=== PATIENT | male | born 1950 | race Caucasian/White ===

== ENCOUNTER 2017-12-21 11:07 | Emergency (ER) | payer OTHER, MEDICARE, SELFPAY ==
[2017-12-21 11:08] VITALS: BP 123/65; PULSE 54; RESP 16; TEMP 36.6; O2SAT 95; BMI 29.7
[2017-12-21 11:19] VITALS: BP 111/74; PULSE 54; RESP 14; O2SAT 94
[2017-12-21] MEDS: 0.9% Normal Saline 1,000 ML 150 ML IV (11:57)
[2017-12-21] MEDS: Ondansetron 4 MG/2 ML Vial IV (11:58)
[2017-12-21] MEDS: Morphine 4 MG/ML Syringe IV ×2 (11:58→14:18)
[2017-12-21 12:06] LABS: Absolute Lymphocyte Count 1.08 X10^3/ul (0.83-4.51); Absolute Neutrophil Count 8.4 X10^3/uL (2.0-7.7); Basophil# 0.02 X10^3/uL; Basophil% 0.2 % (0-1); Eosinophil# 0.06 X10^3/uL; Eosinophils% 0.6 % (0-5); Hematocrit 44.5 % (40-54); Hemoglobin 14.5 g/dl (13.0-16.5); Lymphocyte # 1.08 X10^3/ul (4.0); Lymphocyte % 10.5 % (19-41); Mean Corp Hgb Conc 32.6 g/gl (32-36); Mean Corpuscular Hgb 28.7 pg (27.0-32.0); Mean Corpuscular Volume 88.1 fL (80-94); Monocyte# 0.67 X10^3/uL; Monocyte% 6.5 % (0-10); Neutrophil # 8.41 X10^3/uL (2.7-7.7); Platelet Count 157 K/mm3 (150-450); RBC Distribution Width CV 12.6 % (11.6-14.6); RBC Distribution Width SD 40.2 fl (35.1-43.9); Red Blood Count 5.05 M/mm3 (4.6-6.2); White Blood Count 10.3 K/mm3 (4.4-11.0)
[2017-12-21 12:07] LABS: POSITIVE COUNT NO; POSITIVE DIFFERENTIAL NO; POSITIVE MORPHOLOGY NO
[2017-12-21 12:21] LABS: ALB/GLOB Ratio 1.1 RATIO (0.9-2.4); AST(SGOT) 40 U/L (15-37); Alanine Aminotransfer ALT/SGPT 45 U/L (16-61); Albumin, Serum 4.1 g/dL (3.2-5.0); Alkaline Phosphatase 63 U/L (45-117); Anion Gap 6 (5-15); BUN 25 mg/dL (7-18); BUN/Creat Ratio 17.6 RATIO (10-20); Chloride 106 mmol/L (98-107); Creatinine, Serum 1.42 mg/dL (0.70-1.30); EST Glomerular Filtration Rate 53 mL/min (>60); Est Glom Filt Rate - Afr Amer 64 mL/min (>60); Estimated Creatinine Clearance 55.41 ml/min; Globulin 3.6 g/dL (2.2-4.2); Glucose 130 mg/dL (74-106); Lipase 137 U/L (73-393); Potassium 4.4 mmol/L (3.5-5.1); Protein, Total 7.7 g/dL (6.4-8.2); Sodium Level 140 mmol/L (136-145)
[2017-12-21 13:07] VITALS: BP 120/55; PULSE 51; RESP 15; O2SAT 94
[2017-12-21 14:22] VITALS: BP 129/63; PULSE 69; RESP 16; O2SAT 96
--- NOTE | 2017-12-21 14:44 | PCM.OPRPT ---
Problem List (1) Pneumothorax, left Status: Acute Report of Operation Date of Procedure: 12/21/17 Pre-Operative Diagnosis: Left rib fractures as well as left pneumothorax Post-Operative Diagnosis: Same Surgery/Procedure Performed:: Left chest tube placement Description of Procedure: The patient's CT scan was reviewed and he had multiple rib fractures on the left as well as a pneumothorax. The patient was consented as to the risks of bleeding, infection, injury to the heart or lung. The patient's left side was prepped and draped in usual sterile fashion and an incision site was located in the inframammary crease laterally and midaxillary line. The proposed incision site was injected with lidocaine and then a skin incision was made. The deeper subcutaneous tissue and periosteal tissue was then anesthetized with lidocaine. A hemostat was used to create a thoracostomy opening just above 1 of the ribs and there was a case of air. A finger sweep was performed. Next a 28 Pashto chest tube was placed into the left chest and secured to the skin using 2-0 Mersilene suture and a 3-0 silk suture for the skin. The chest he was placed to suction and there was a good case of air and after that there was no air leak. The chest tube was placed to -20 of suction. The area around the incision was then gauze was placed around this as well as drain sponges and tape. Patient tolerated the procedure well. Chest x-ray will be obtained.
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
[2017-12-21 15:20] VITALS: BP 114/63; PULSE 57; RESP 22; O2SAT 99
[2017-12-21 15:37] VITALS: BP 114/63; PULSE 57; RESP 18; O2SAT 99
== END 2017-12-21 16:38 | disposition short-term general hospital (02) ==
PROVIDERS: Emergency Provider Emergency Medicine; Family Provider Family Medicine; PCP Family Medicine
DX: J93.9 Pneumothorax, unspecified (principal); S22.42XA Multiple fractures of ribs, left side, initial encounter for closed fracture; S09.90XA Unspecified injury of head, initial encounter; S01.01XA Laceration without foreign body of scalp, initial encounter; V19.9XXA Pedal cyclist (driver) (passenger) injured in unspecified traffic accident, initial encounter; Y93.55 Activity, bike riding; Y92.828 Other wilderness area as the place of occurrence of the external cause; Y99.8 Other external cause status; I44.0 Atrioventricular block, first degree
CPT/HCPCS: 12001; 32551; 70450; 71045; 71260; 72125; 74177; 80053; 83690; 84484; 85025; 93005; 96361; 96374; 96375; 96376; 99285; J7030; Q9967; A4216; J2405

== ENCOUNTER 2021-03-17 14:36 | Outpatient (CLI) | payer MEDICARE, SELFPAY ==
[2021-03-17 14:47] VITALS: BP 129/62; PULSE 63; RESP 16; TEMP 37.3; O2SAT 92; BMI 28.5
[2021-03-17] MEDS: 0.9% Saline Lock 10 ML Syringe IV (14:47)
[2021-03-17 15:40] VITALS: BP 125/56; PULSE 63; RESP 16; TEMP 38.2; O2SAT 92
[2021-03-17] MEDS: Acetaminophen 325 MG Tablet 650 MG PO (16:14)
[2021-03-17 16:50] VITALS: BP 123/63; PULSE 62; RESP 16; TEMP 38.2; O2SAT 92
== END 2021-03-17 16:50 | disposition home or self-care (01) ==
LOC: MS3OUT 14:36 → MS3 14:37
PROVIDERS: PCP Family Medicine; Referring Provider Nurse Practitioner Adult Health; Visit Provider Nurse Practitioner Adult Health
DX: Z23 Encounter for immunization (principal); U07.1 COVID-19
CPT/HCPCS: J7050; M0245; Q0245; A4216

== ENCOUNTER 2021-03-20 13:55 | Inpatient (IN) | payer MEDICARE, SELFPAY ==
[2021-03-20] VITALS (8 sets, daily range): BP systolic 133–158; BP diastolic 54–75; PULSE 54–68; RESP 16–22; TEMP 36.3–36.5; O2SAT 82–96; BMI 29.8; BMI 29.3
--- NOTE | 2021-03-20 14:30 | EKG12_ITS ---
Test Reason : SOB Blood Pressure : / mmHG Vent. Rate : 059 BPM Atrial Rate : 059 BPM P-R Int : 234 ms QRS Dur : 090 ms QT Int : 468 ms P-R-T Axes : 022 052 046 degrees QTc Int : 463 ms Sinus bradycardia with 1st degree A-V block with occasional Premature ventricular complexes Septal infarct , age undetermined Abnormal ECG Confirmed by JAMES ROA, LORI ([id number]), video tape editor IGGY ESPOSITO ([id number]) on 03/22/2021 9:43:16 AM Referred By: EMMA Confirmed By:LORI RAMIREZ MD
--- NOTE | 2021-03-20 14:30 | CT_ITS ---
STUDY: CTA CHEST REASON FOR EXAM: Male, 70 years old. Hypoxia RADIATION DOSAGE (If Supplied By Facility): CTDIvol = ( 12.60 ) mGy, DLP = ( 562.89 ) mGycm TECHNIQUE: The examination was performed with the intravenous administration of IV 100mL Isovue-370. Post-processing of the angiographic images was performed, with multiplanar reformation and 3D reconstruction. Individualized dose optimization techniques were used for this CT. COMPARISON: Comparison is made with prior chest radiograph from earlier today. FINDINGS: Normal enhancement of the main pulmonary artery and right and left pulmonary arteries. Normal enhancement of the bilateral peripheral pulmonary arteries. There is no demonstrated pulmonary embolism. Normal thoracic aorta and visualized great vessels. There is no demonstrated aortic dissection. There are calcifications of the coronary arteries. Normal mediastinum. Normal hilar regions. Normal visualized trachea and bronchi. The lungs are well expanded. There now is evidence of bilateral infiltrates involving both upper and lower lobes worse in the left hemithorax and in the right lower lobe. Normal pleura. Normal chest wall structures. Normal osseous structures. Small anal hernia. CT/CTA Chest W/WO Contrast IMPRESSION: No evidence of pulmonary embolism. Bilateral pulmonary infiltrates worse in the left hemithorax. Electronically Signed: Joe Carlos MD at 15:47 EST , Service support ,
--- NOTE | 2021-03-20 14:40 | EDS_ITS ---
HPI History of Present Illness Chief Complaint: Shortness of Breath Narrative Narrative: 70-year-old male presenting with shortness of breath. He is on day 12 of COVID-19 symptoms. He still has a low-grade fever on and off. He denies body aches or chills. He states he is able to ambulate but becomes short of breath when he walks. He has mild weakness. He has not fallen. Patient denies having any chest pain. He states that he had the monoclonal antibodies last Saturday and his pulse ox was 94% during that time. After this his pulse ox has been down to 82 at home. Patient has not been on oxygen until today. PFSH PFSH Home Medications simvastatin 40 mg PO DAILY 12/21/17 [History Last Taken 03/19/21] aspirin [Aspirin Low-Strength] 81 mg PO DAILY@199903/20/21 [History Last Taken 03/19/21] Allergy/AdvReac Type Severity Reaction Status Date / Time No Known Allergies Allergy Verified 03/20/21 17:32 Social History Smoking Status: Never smoker ROS ROS ED Constitutional Constitutional ED: Reports fever(s); Denies chills Eyes Eyes: Denies blurry vision or diplopia ENT ENT ED: Denies ear pain or rhinorrhea Cardiovascular Cardiovascular: Denies chest pain or palpitations Respiratory/Chest Respiratory/Chest: Reports cough, dyspnea and dyspnea on exertion Gastrointestinal Gastrointestinal: Denies abdominal pain, nausea or vomiting Genitourinary Genitourinary ED: Denies dysuria or hematuria Musculoskeletal Musculoskeletal: Denies arthralgias or myalgias Integumentary Denies abscess or rash Neurologic Neurologic: Denies headache(s) or paresthesias Psychiatric Psychiatric: Denies anxiety or depression EXAM Physical Exam Const Vital Signs: 03/20/21 13:55 03/20/21 13:59 03/20/21 14:17 Temperature 97.4 F L Temperature Source Temporal Pulse Rate 60 Respiratory Rate 16 Respiratory Effort Short of Breath Labored Respiratory Depth Normal Respiratory Pattern Normal Blood Pressure 147/75 H Blood Pressure Mean 99 Pulse Ox 82 92 Oxygen Delivery Method Room Air Nasal Cannula Oxygen Flow Rate (L/min) 2 03/20/21 14:50 03/20/21 16:26 Temperature Temperature Source Pulse Rate 54 L Respiratory Rate 20 H Respiratory Effort Respiratory Depth Respiratory Pattern Blood Pressure Blood Pressure Mean Pulse Ox 96 91 Oxygen Delivery Method Nasal Cannula Nasal Cannula Oxygen Flow Rate (L/min) 3 3 Positive well nourished General Appearance ED: NAD; Negative for pallor HEENT Reports moist mucous membranes atraumatic Eyes PERRL and EOMs intact bilaterally Resp normal respiratory effort Auscultation: rales diffuse Cardio regular rhythm GI non-tender and non-distended Palpation: soft Neuro oriented x3, CN's II-XII intact bilaterally and no sensory deficits noted Sensorium / Orientation: alert and oriented to person Motor Exam: strength 5/5 throughout Psych mental status grossly normal Thought Process: normal thought process Skin General Skin Exam: Negative for jaundice or pallor MDM MDM MDM Narrative Medical decision making narrative: 70-year-old male presenting with hypoxia status post having Covid and is on day 12. Is also had a monoclonal antibodies. Patient says he has some minor fatigue otherwise. He denies any chest pain. He is dyspneic on exertion. EKG performed on arrival shows a sinus bradycardia with a ventricular rate of 59 bpm with a first-degree AV block and 1 PVC on my interpretation. Chest x-ray my interpretation shows bilateral pulmonary infiltrates which are worse on the left and radiologist does agree. CBC is unremarkable. Renal function electrolytes are normal. AST is 135, ALT 137. Troponin is 12. I did obtain a CTA of the chest which does not show any pulmonary emboli or dissection but does identify multiple bilateral pulmonary infiltrates. Patient was ambulated on 3 L of oxygen and dropped to 86%. On 4 L of oxygen he drops to 87%. He is symptomatic. At this point I feel the patient will need to be admitted for further care. Patient was given 6 mg of IV dexamethasone. I discussed this with the hospitalist and he will be admitted in stabilized condition. Impression: 1. COVID-19 pneumonitis 2. Hypoxic respiratory failure Lab Data Labs: Laboratory Results - last 24 hr 03/20/21 03/20/21 03/20/21 14:40 14:40 14:40 WBC 6.8 RBC 4.13 L Hgb 12.1 L Hct 35.2 L MCV 85.2 MCH 29.3 MCHC 34.4 RDW Std Deviation 38.9 RDW Coeff of Adrienne 12.5 Plt Count 152 MPV 9.8 Immature Gran % (Auto) 0.700 Neut % (Auto) 79.9 H Lymph % (Auto) 10.1 L [place] % (Auto) 9.1 Eos % (Auto) 0.1 Baso % (Auto) 0.1 Absolute Neuts (auto) 5.4 Absolute Lymphs (auto) 0.69 L Nucleated RBC % 0 Sodium 135 L Potassium 3.4 L Chloride 104 Carbon Dioxide 24.0 Anion Gap 7 BUN 11 Creatinine 0.82 Estim Creat Clear Calc 89.28 Est GFR (MDRD) Af Amer 119 Est GFR (MDRD) Non-Af 98 BUN/Creatinine Ratio 13.4 Glucose 109 H Calcium 8.6 Phosphorus 2.6 Magnesium 2.1 Total Bilirubin 0.70 AST 135 H ALT 137 H Alkaline Phosphatase 92 Troponin I High Sens 12 Total Protein 6.7 Albumin 2.6 L Globulin 4.1 Albumin/Globulin Ratio 0.6 L Radiography Diagnostic Testing: Clinical Impression(s) from Imaging Studies Chest CTA 03/20/21 14:30 IMPRESSION: No evidence of pulmonary embolism. Bilateral pulmonary infiltrates worse in the left hemithorax. Electronically Signed: Joe Carlos MD at 15:47 EST , Service support , Chest X-Ray 03/20/21 14:50 IMPRESSION: Bilateral pulmonary infiltrates worse in the left hemithorax. Electronically Signed: Joe Carlos MD at 15:30 EST , Service support , Discharge Plan Disposition Disposition: Acute Care Hospital [facility] Discharge Date/Time: 03/20/21 17:06
[2021-03-20 14:50] LABS: Absolute Lymphocyte Count 0.69 X10^3/uL (0.83-4.51); Absolute Neutrophil Count 5.4 X10^3/uL (2.0-7.7); Basophil# 0.01 X10^3/uL; Basophil% 0.1 % (0-1); Eosinophil# 0.01 X10^3/uL; Eosinophils% 0.1 % (0-5); Hematocrit 35.2 % (40-54); Hemoglobin 12.1 g/dL (13.0-16.5); Lymphocyte # 0.69 X10^3/ul (0.83-4.51); Lymphocyte % 10.1 % (19-41); Mean Corp Hgb Conc 34.4 g/dL (32-36); Mean Corpuscular Hgb 29.3 pg (27.0-32.0); Mean Corpuscular Volume 85.2 fL (80-94); Mean Platelet Vol. 9.8 fl (6.2-12.0); Monocyte# 0.62 X10^3/uL; Monocyte% 9.1 % (0-10); NRBC Flagged by Analyzer 0 % (0-5); Neutrophil # 5.42 X10^3/uL (2.7-7.7); Neutrophil % 79.9 % (47-70); Platelet Count 152 K/mm3 (150-450); RBC Distribution Width CV 12.5 % (11.6-14.6); RBC Distribution Width SD 38.9 fl (35.1-43.9); Red Blood Count 4.13 M/mm3 (4.6-6.2); White Blood Count 6.8 K/mm3 (4.4-11.0)
--- NOTE | 2021-03-20 14:50 | RAD_ITS ---
STUDY: X-RAY CHEST REASON FOR EXAM: Male, 70 yearsOld. Weakness and dyspnea. History of Covid. TECHNIQUE: Single AP portable view of the chest. COMPARISON: comparison is made with prior study 12/21/2017. FINDINGS: EKG electrodes are seen. There now is evidence of bilateral pulmonary infiltrates worse in the left hemithorax. There is no demonstrated pleural abnormality. Normal size heart. Normal mediastinum and nat. Normal visualized pulmonary arteries. There is atherosclerotic tortuosity of the aortic arch and descending thoracic aorta. Normal visualized thoracic spine. Normal visualized ribs, clavicles, and shoulders. There is no demonstrated abnormality of the visualized soft tissue structures of the upper abdomen. RAD/Chest 1 View (Portable) IMPRESSION: Bilateral pulmonary infiltrates worse in the left hemithorax. Electronically Signed: Joe Carlos MD at 15:30 EST , Service support ,
[2021-03-20 15:16] LABS: ALB/GLOB Ratio 0.6 RATIO (0.9-2.4); AST(SGOT) 135 U/L (15-37); Alanine Aminotransfer ALT/SGPT 137 U/L (16-61); Albumin, Serum 2.6 g/dL (3.2-5.0); Alkaline Phosphatase 92 U/L (45-117); Anion Gap 7 (5-15); BUN 11 mg/dL (7-18); BUN/Creat Ratio 13.4 RATIO (10-20); Calcium,Total 8.6 mg/dL (8.5-10.1); Chloride 104 mmol/L (98-107); Creatinine, Serum 0.82 mg/dL (0.70-1.30); EST Glomerular Filtration Rate 98 mL/min (>60); Est Glom Filt Rate - Afr Amer 119 mL/min (>60); Estimated Creatinine Clearance 89.28 ml/min; Globulin 4.1 g/dL (2.2-4.2); Glucose 109 mg/dL (74-106); Potassium 3.4 mmol/L (3.5-5.1); Protein, Total 6.7 g/dL (6.4-8.2); Sodium Level 135 mmol/L (136-145); Troponin-I HS 12 pg/mL (3.0-78.0)
[2021-03-20] MEDS: dexAMETHasone 10 MG/ML Vial 6 MG IV (15:37)
--- NOTE | 2021-03-20 16:26 | ED.RN ---
Ambulated with oxygen at 3-4L. Pt. highest was 87% O2.
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
[2021-03-20 17:30] LABS: Magnesium 2.1 mg/dL (1.6-2.6); Phosphorus 2.6 mg/dL (2.5-4.9)
[2021-03-20 17:51] LABS: Fibrinogen 792 mg/dl (203-444); International Normalized Ratio 1.2; Prothrombin Time (Protime)PT. 14.1 SECONDS (11.7-14.9)
--- NOTE | 2021-03-20 17:55 | PCS.PANDOC ---
PANDEMIC DOCUMENTATION INITIATED: Date: 12/19/2020 Time: 0489
[2021-03-20 17:59] LABS: BNP,B-Type NATRIURETIC PEPTIDE 79.9 pg/mL (0-100); CPK Total, Creatine Kinase 150 U/L (39-308); LDH 366 U/L (87-241)
[2021-03-20 18:03] LABS: Procalcitonin 0.11 ng/mL (0.00-0.09)
[2021-03-20 18:09] LABS: D-Dimer Quantitative (DVT/PE) 1.52 FEU/ug/m (0.27-0.49)
[2021-03-20] MEDS: Potassium Chloride Oral Tablet 20 MEQ 40 MEQ PO ×2 (18:24→21:14)
[2021-03-20 19:24] LABS: Lactic Acid 1.6 mmol/L (0.4-1.9)
[2021-03-20] MEDS: Enoxaparin 30 MG/0.3 ML Syringe SC (21:13)
[2021-03-20] MEDS: guaiFENesin/D-Methorphan TAB.SR.12H 1 TABLET PO (21:14)
[2021-03-20] MEDS: Aspirin E.C. 81 MG Tablet PO (21:14)
[2021-03-20] MEDS: Atorvastatin Calcium 20 MG Tablet PO (21:14)
[2021-03-21 03:23] VITALS: BP 123/59; PULSE 53; RESP 18; TEMP 36.5; O2SAT 94
[2021-03-21 08:02] LABS: Absolute Lymphocyte Count 0.79 X10^3/uL (0.83-4.51); Absolute Neutrophil Count 7.1 X10^3/uL (2.0-7.7); Basophil# 0.01 X10^3/uL; Basophil% 0.1 % (0-1); Hematocrit 37.2 % (40-54); Hemoglobin 12.6 g/dL (13.0-16.5); Lymphocyte # 0.79 X10^3/ul (0.83-4.51); Lymphocyte % 9.4 % (19-41); Mean Corp Hgb Conc 33.9 g/dL (32-36); Mean Corpuscular Volume 85.5 fL (80-94); Mean Platelet Vol. 10.6 fl (6.2-12.0); Monocyte# 0.45 X10^3/uL; Monocyte% 5.4 % (0-10); NRBC Flagged by Analyzer 0 % (0-5); Neutrophil # 7.07 X10^3/uL (2.7-7.7); Neutrophil % 84.1 % (47-70); Platelet Count 212 K/mm3 (150-450); RBC Distribution Width CV 12.1 % (11.6-14.6); RBC Distribution Width SD 37.8 fl (35.1-43.9); Red Blood Count 4.35 M/mm3 (4.6-6.2); White Blood Count 8.4 K/mm3 (4.4-11.0)
[2021-03-21 08:35] VITALS: O2SAT 94
[2021-03-21] MEDS: dexAMETHasone 4 MG Tablet 6 MG PO (08:39)
[2021-03-21] MEDS: Enoxaparin 30 MG/0.3 ML Syringe SC (08:39)
[2021-03-21] MEDS: guaiFENesin/D-Methorphan TAB.SR.12H 1 TABLET PO (08:41)
[2021-03-21 08:46] VITALS: BP 131/70; PULSE 57; RESP 18; TEMP 36.5; O2SAT 93
[2021-03-21 09:11] LABS: ALB/GLOB Ratio 0.6 RATIO (0.9-2.4); AST(SGOT) 96 U/L (15-37); Alanine Aminotransfer ALT/SGPT 127 U/L (16-61); Albumin, Serum 2.6 g/dL (3.2-5.0); Alkaline Phosphatase 87 U/L (45-117); Anion Gap 9 (5-15); BUN 15 mg/dL (7-18); BUN/Creat Ratio 17.3 RATIO (10-20); Chloride 104 mmol/L (98-107); Creatinine, Serum 0.87 mg/dL (0.70-1.30); EST Glomerular Filtration Rate 92 mL/min (>60); Est Glom Filt Rate - Afr Amer 112 mL/min (>60); Estimated Creatinine Clearance 84.15 ml/min; Globulin 4.6 g/dL (2.2-4.2); Glucose 116 mg/dL (74-106); Potassium 4.5 mmol/L (3.5-5.1); Protein, Total 7.2 g/dL (6.4-8.2); Sodium Level 134 mmol/L (136-145)
[2021-03-21 13:45] VITALS: O2SAT 85; O2SAT 88; O2SAT 90; O2SAT 91; O2SAT 92
[2021-03-21 14:03] VITALS: O2SAT 91
--- NOTE | 2021-03-21 14:50 | CASEMGMT ---
ROLO MEDINA Assessment: Face to Face with pt for initial transition planning/care coordination assessment. ROLO MEDINA introduced self and role at [facility], pt voices understanding and consents to assessment. Pt is A/O x4 and answers all questions appropriately at this time. Pt lying in bed with O2 on in no distress. Care providers, pharmacy, and demographics verified/updated. Admitting Dx: COVID 19 PNA with hypoxia PCP:Iv[facility] Specialists:Pt denies. Preferred Pharmacy: [facility] Insurance:[employer] Prescription Benefit: yes LW/HPOA: Pt has a LW/DPOA. He states his DPOA is his son in law Evin Loya. He is aware it is not on file at [facility] and may bring in to be scanned into the chart. LNOK: Lily Castro, ; Evin Loya, son in law; Anjana Castro, dtr Living Arrangements: Pt lives with and dtr Anjana in a single story house with 2 steps to enter. Pt reports being I in ADL's and denies concerns at home. Transportation: Pt drives self and denies concerns with transportation. DME/HHC/SNF: Pt has a pulse ox at home, denies hx of HHC or SNF stays. Provided pt with list of in network DME companies, pt has no preference of O2 company. Pt does qualify for home O2. Placed referral to [employer] [place] to rep who states portable will be delivered to [facility] today. Pt states he was tested with a home test then at [facility]. Pt is able to quarantine from and dtr by using separate bedrooms but not bathrooms. Pt does have family who can provide him with groceries and supplies. Pt states no concerns with going home at time of dc. Pt states no further concerns/needs. CM to follow. Advised pt to ask CM if any further question/concerns/needs arise, voices understanding. Pt Goal: Home Plan: Home
--- NOTE | 2021-03-21 16:17 | PCM.DC ---
Discharge Instructions Diet Discharge Diet: No restrictions Activity Discharge Activity: Return to Normal Activity Weight Bearing Status: Full weight bearing Additional Activity Instructions:: Please quarantine for a total of 20 days after your first Covid symptoms Follow Up Care Test Results: Test results from this visit will be discussed in further detail at your follow-up appointment, if applicable. Discharge Plan Admission Admit Date/Time: 03/20/21 16:32 Primary Reason for Your Visit: COVID-19 pneumonia Attending Provider: Tad Strong Primary Care Provider: Benjamin iWseman Discharge Orders/Prescriptions Prescriptions: New dexamethasone 2 mg tablet 6 mg PO DAILY Qty: 24 RF: 0 Continued simvastatin 40 MG tablet 40 mg PO DAILY RF: 0 Discontinued aspirin [Aspirin Low-Strength] 81 mg Tablet,Delayed Release (Dr/Ec) 81 mg PO DAILY@1999 RF: 0 Referrals / Follow Up: Benjamin Wiseman MD [Primary Care Provider] - See Referral Note (In 10 days) Disposition Disposition (needs filled in before D/C Order can be placed): Home, Self Care
[2021-03-21 16:45] VITALS: BP 128/47; PULSE 64; RESP 18; TEMP 36.2; O2SAT 95
--- NOTE | 2021-03-21 20:20 | PCM.DC.SUM ---
Providers Date of Admission: 03/20/21 Date of Discharge: 03/21/21 Primary Care Physician: Dr. Benjamin Wiseman MD Reason For Visit: COVID 19 PNEUMONIA WITH HYPOXIA Diagnosis Discharge Diagnosis (1) COVID-19: Status: Acute Code(s): U07.1 - COVID-19 Plan: Final diagnosis #1 COVID-19 pneumonia #2 acute hypoxic respiratory failure secondary to COVID-19 pneumonia #3 hyperlipidemia Medications at Discharge Home Medications simvastatin 40 mg PO DAILY 12/21/17 dexamethasone 6 mg PO DAILY #24 tab 03/21/21 Hospital Course Operations None Procedures None Summary of Care Provided Minutes Spent on Discharge: 31 Hospital Course: This 70-year-old white male was seen in the emergency room at [facility] with a chief complaint of shortness of breath, patient was known to have had Covid approximately 12 days prior, he complained of having a low-grade fever off and on. Patient complained of feeling short of breath when he ambulated. Patient also complained of mild weakness. Patient did receive monoclonal antibodies 3 days prior. His pulse ox was noted to be 82% on room air at home according to patient. Emergency room revealed the patient have a normal white blood cell count, patient was ambulated on 3 L via nasal cannula in the emergency room and is pulse ox dropped to 86%, he was symptomatic. Patient was given IV dexamethasone, he was admitted for COVID-19 pneumonia and seen by myself the following day. Oxygen check on the patient following day revealed him to require 2 L of oxygen at rest and 5 L of oxygen on ambulation. His pulse ox on room air was 85%. I had discussions with the patient concerning treatment and since the only treatment he was eligible for was dexamethasone, patient agreed to be discharged home on home oxygen and dexamethasone. On 03/21/2021, patient was seen and examined: On examination he appeared in good health and spirits. Vital signs as documented. Skin warm and dry and without overt rashes. Neck without JVD, neck was supple, trachea midline, thyroid was normal. Lungs clear bilaterally, normal air movement was noted. Heart exam notable for regular rhythm, normal sounds and absence of murmurs, rubs or gallops. Abdomen unremarkable and without evidence of organomegaly, masses, or abdominal aortic enlargement. Bowel sounds are present, abdomen is not distended. Extremities nonedematous, no cyanosis was noted, no clubbing was noted. Neuro: Cranial nerves II through XII are grossly intact, no focal motor deficits were noted, sensation to light touch and pinprick intact, motor exam 5/5 throughout. Psych: Patient is alert and oriented x3, he does not appear anxious or depressed, he does not appear agitated. On 03/21/2021, patient was seen and examined and felt to be stable for discharge home. Weight / BMI Weight Weight: 95.5 kg Body Mass Index (BMI) 29.3 ABG / Lab / Microbiology Data Result Diagrams: 03/21/21 07:05 03/21/21 07:05 Laboratory: Laboratory Results - last 24 hr 03/21/21 07:05: WBC 8.4, RBC 4.35 L, Hgb 12.6 L, Hct 37.2 L, MCV 85.5, MCH 29.0, MCHC 33.9, RDW Std Deviation 37.8, RDW Coeff of Adrienne 12.1, Plt Count 212, MPV 10.6, Immature Gran % (Auto) 1.000 H, Neut % (Auto) 84.1 H, Lymph % (Auto) 9.4 L, Moody % (Auto) 5.4, Eos % (Auto) 0.0, Baso % (Auto) 0.1, Absolute Neuts (auto) 7.1, Absolute Lymphs (auto) 0.79 L, Nucleated RBC % 0 03/21/21 07:05: Sodium 134 L, Potassium 4.5, Chloride 104, Carbon Dioxide 21.0, Anion Gap 9, BUN 15, Creatinine 0.87, Estim Creat Clear Calc 84.15, Est GFR (MDRD) Af Amer 112, Est GFR (MDRD) Non-Af 92, BUN/Creatinine Ratio 17.3, Glucose 116 H, Calcium 9.0, Total Bilirubin 0.70, AST 96 H, ALT 127 H, Alkaline Phosphatase 87, Total Protein 7.2, Albumin 2.6 L, Globulin 4.6 H, Albumin/Globulin Ratio 0.6 L Microbiology: Microbiology 03/20/21 21:20 Sputum, Expectorated/Coughed Gram Stain - Final 03/20/21 18:12 Urine, Clean Catch Legionella Antigen - Final 03/20/21 18:12 Urine, Clean Catch Streptococcus pneumoniae Antigen (M - Final D/C Instructions Discharge Diet: No restrictions Weight Bearing Status: Full weight bearing Additional Activity Instructions: Please quarantine for a total of 20 days after your first Covid symptoms Meaningful Use Info Meaningful Use Diagnoses (Choose all that apply): None applicable Discharge Plan Admission Admit Date/Time: 03/20/21 16:32 Primary Reason for Your Visit: COVID-19 pneumonia Attending Provider: Tad Strong Primary Care Provider: Benjamin Wiseman Discharge Orders/Prescriptions Prescriptions: New dexamethasone 2 mg tablet 6 mg PO DAILY Qty: 24 RF: 0 Continued simvastatin 40 MG tablet 40 mg PO DAILY RF: 0 Discontinued aspirin [Aspirin Low-Strength] 81 mg Tablet,Delayed Release (Dr/Ec) 81 mg PO DAILY@1999 RF: 0 Referrals / Follow Up: Benjamin Wiseman MD [Primary Care Provider] - See Referral Note (In 10 days) Disposition Disposition (needs filled in before D/C Order can be placed): Home, Self Care Charges/Coding Visit Charges Inpatient E&M: [id number] Disch Hosp
--- NOTE | 2021-04-07 14:52 | CASEMGMT ---
ROLO MEDINA NOTE: Message received from ROLO Little CM, that pt left a msg inquiring about nocturnal oxygen testing. This RN ADAM placed call to pt to gather further information and to assist as needed. Pt states his PCP wants him to have an ambulatory oxygen testing and nocturnal testing done. He states he is scheduled for the amb o2 testing today and is getting ready to go to that appt now. He was calling to inquire what to do re: the nocturnal testing. He states he left a message w/[facility] but has not heard back from them yet. Pt also informed this RN ADAM that he was not sure if he is using his oxygen tanks correctly, as they were delivered to his home/on the porch and he did not have any education on the equipment. He states he thinks he is using it correctly and his oxygen levels have been staying up, he just wasn't sure. This RN ADAM placed call to [facility] and spoke w/resp therapist, Dhaval. Dhaval states they have received the script from pt's PCP for the overnight oximetry testing and it is tentatively scheduled for . He states he will be reaching out to pt to schedule/confirm appt. Dhaval also made aware pt inquiring about the O2 equipment and if he was using it properly. He states they will go over this w/pt when they do the nocturnal oximetry. ROLO MEDINA placed call back to pt. He was notified that [facility] does have the script for the overnight oximetry/nocturnal testing and that [facility] will be contacting him to schedule this. ROLO MEDINA explained to pt that this is done in the home and [facility] will go over process w/him and that they will also go over the O2 equipment and answer any questions he may have. He voices understanding and appreciation. He has [facility]'s contact info and is aware he can call them if any questions arise that need answered prior to the overnight oximetry testing. Pt denies having any further questions or needs. Pat WHITE RN, CM
== END 2021-03-21 18:53 | disposition home or self-care (01) | DRG 177 ==
LOC: ED 16:40 → MS3 16:42
PROVIDERS: Admitting Provider Internal Medicine; Emergency Provider Student in an Organized Health Care Education/Training Program; PCP Family Medicine; Visit Provider Internal Medicine
DX: U07.1 COVID-19 (principal); J12.82 Pneumonia due to coronavirus disease 2019; J96.01 Acute respiratory failure with hypoxia; E87.6 Hypokalemia; Z66 Do not resuscitate; E78.5 Hyperlipidemia, unspecified
CPT/HCPCS: 36415; 71045; 71275; 80053; 82550; 83605; 83615; 83735; 83880; 84100; 84145; 84484; 85025; 85379; 85384; 85610; 86140; 87070; 87205; 87449; 93005; 97802; 99285; J7050; M0245; Q0245; Q9967; A4216

== ENCOUNTER 2021-05-22 20:31 | Outpatient (CLI) | payer MEDICARE, SELFPAY | END 2021-05-22 23:59 | disposition short-term general hospital (02) | LOC: SL 20:31 | PROVIDERS: PCP Family Medicine; Visit Provider Family Medicine | DX: G47.34 Idiopathic sleep related nonobstructive alveolar hypoventilation (principal); G47.33 Obstructive sleep apnea (adult) (pediatric) | CPT/HCPCS: 95811 ==

== ENCOUNTER → 2021-09-21 | Outpatient (CLI) | payer MEDICARE, SELFPAY | END | disposition home or self-care (01) | LOC: SL 12:04 | PROVIDERS: PCP Family Medicine; Visit Provider Family Medicine | DX: G47.33 Obstructive sleep apnea (adult) (pediatric) (principal) | CPT/HCPCS: 98960; G0463 ==